=== PATIENT | female | born 1960 ===

== ENCOUNTER 2017-06-24 18:07 | Emergency (ER) | payer BC ==
[2017-06-24] MEDS ORDERED: Oxycodone/Acetaminophen 5/325 mg Tab PO STA (18:12)
[2017-06-24] MEDS ORDERED: Oxycodone/Acetaminophen 5/325 mg Tab ONE (18:15)
--- NOTE | 2017-06-24 18:24 | C.PDOC ---
History Of Present Illness 57 year old female was brought to the ED by EMS with complaints of left elbow pain after slipping and falling in the tub just prior to arrival. No other injury. No change in sensation. RIght hand dominant. She notes a previous surgery to the right elbow and denies head trauma, LOC, or vomiting. Time Seen by Provider: 06/24/17 18:09 Chief Complaint (Nursing): Upper Extremity Problem/Injury History Per: Patient, Cashier General History/Exam Limitations: no limitations Onset/Duration Of Symptoms: Mins (just prior to arrival ) Current Symptoms Are (Timing): Still Present Quality: "Pain" Exacerbating Factor(s): Movement Recent travel outside of the [place]: No Additional History Per: EMS Past Medical History Reviewed: Historical Data, Nursing Documentation, Vital Signs Vital Signs: Last Vital Signs Temp 98.4 F 06/24/17 21:02 Pulse 72 06/24/17 21:02 Resp 18 06/24/17 21:02 BP 110/61 06/24/17 21:02 Pulse Ox 100 06/24/17 21:02 Family History: States: Unknown Family Hx - Social History Hx Alcohol Use: No Hx Substance Use: No - Immunization History Hx Tetanus Toxoid Vaccination: Yes Hx Influenza Vaccination: Yes Hx Pneumococcal Vaccination: No Review Of Systems Except As Marked, All Systems Reviewed And Found Negative. Musculoskeletal: Positive for: Arm Pain (left elbow pain ) Physical Exam - Physical Exam Appears: Non-toxic, In Acute Distress (painful distress) Skin: Warm, Dry Head: Atraumatic, Normacephalic Eye(s): bilateral: Normal Inspection, PERRL, EOMI Nose: Normal Oral Mucosa: Moist Neck: Normal ROM, Supple Chest: Symmetrical, No Deformity Cardiovascular: Rhythm Regular Respiratory: Normal Breath Sounds, No Rhonchi, No Wheezing Extremity: No Normal ROM (decreased ROM ), Tenderness (to the left elbow ), Capillary Refill (good capillary refill, less than two seconds ), Deformity ( deformity of the left elbow ), No Swelling, Other (Patient is able to move digits of the left hand ) Pulses: Left Radial: Normal, Right Radial: Normal Neurological/Psych: Oriented x3, Normal Speech, Normal Cognition, Normal Motor, Normal Sensation Gait: Steady ED Course And Treatment O2 Sat by Pulse Oximetry: 99 (room air ) - Other Rad Left Elbow X-Ray X-Ray: Interpreted by Me, Viewed By Me Interpretation: (+) posterior Left elbow dislocation. Post reduction X-Ray: Interpreted by Me, Viewed By Me Interpretation: (+) elbow reduced. Questionable floating body vs fracture. Progress Note: X-ray of the left elbow was ordered. Patient was given oxycodone. Case discussed with Dr Martin, ortho information systems specialist who instructs reduction. Posterior elbow reduction preformed by Dr Herrera. Posterior elbow splint applied by me after redution and sling applied. Pt instructed to follow up with ortho in 1-2 days or return to ER if symptoms persist or worsen. Reassessment Condition: Improved Orthopedic Time Performed: 20:00 Procedure: Joint reduction Type: Posterior Location: Left Performed by: Mid-level Provider Diagnosis: Dislocation Type: Closed Location: Left Bone: Ulna Joints: Other (elbow joint) Anesthetic Technique: Oral pain medication, Procedural sedation Procedural Sedation: Propofol Capillary refill: Normal Distal Sensation: Normal Distal Motor Function: Normal Capillary Refill: Normal Compartment: Normal Distal Sensation: Normal Distal Motor Function: Normal Post-reduction Radiograph: Good Alignment Patient tolerated procedure: Well Disposition - Disposition Referrals: Clinic,Med Surg [Primary Care Provider] - Curt Martin III, MD [Staff Provider] - Disposition: HOME/ ROUTINE Disposition Time: 21:00 Condition: STABLE Additional Instructions: Loc miguel mdico ortopdico clnica en 1-3 canela sin falta, para mas evaluacin. [place] [facility] medicament[facility] amber indicado. Prescriptions: Naproxen [Naprosyn] 1 tab PO BID PRN #20 tab PRN Reason: Pain Instructions: Elbow Dislocation (ED) Forms: [employer] (Tanzanian) - Clinical Impression Clinical Impression: Elbow dislocation - Scribe Statement The provider has reviewed the documentation as recorded by the Scribe Rita Jacques All medical record entries made by the Scribe were at my direction and personally dictated by me. I have reviewed the chart and agree that the record accurately reflects my personal performance of the history, physical exam, medical decision making, and the department course for this patient. I have also personally directed, reviewed, and agree with the discharge instructions and disposition.
[2017-06-24] MEDS ORDERED: Sodium Chloride 0.9% 1,000 ML ONE (18:47)
[2017-06-24] MEDS ORDERED: Sodium Chloride 0.9% 1,000 ML IV ONE (18:47)
[2017-06-24] MEDS ORDERED: Propofol 10 mg/ml Inj (20 ML) IV ONE (19:25)
[2017-06-24] MEDS ORDERED: Propofol 10 mg/ml Inj (20 ML) ONE (19:34)
[2017-06-24] MEDS ORDERED: Propofol 10 mg/ml 1,000 MG/100 ML VIAL ONE (19:35)
[2017-06-24 21:03] VITALS: BP 110/61; PULSE 72; RESP 18; TEMP 98.4
[2017-06-24 22:13] VITALS: O2SAT 99
--- NOTE | 2017-06-25 10:54 | RAD ---
PROCEDURE: Radiographs of the left elbow. HISTORY: pain COMPARISON: No prior. FINDINGS: BONES: No suspicious lytic or blastic changes identified and there is no fracture appreciated throughout the left elbow. JOINTS: However, there is a posterior dislocation of both the radius and the ulna with the distal humeral condyle abutting the coronoid process of the proximal left ulna SOFT TISSUES: Normal. JOINT EFFUSION: None. OTHER FINDINGS: None IMPRESSION: Posterior ulnar and radial dislocations are identified at the left elbow without definite fracture identified. Please see discussion above.
--- NOTE | 2017-06-25 10:57 | RAD ---
PROCEDURE: Radiographs of the left elbow. HISTORY: post reduction COMPARISON: Left elbow pre reduction radiograph 06/24/2017 18:21 p.m. FINDINGS: BONES: Adequate reduction appears to have been achieved with a mild anterior joint effusion appreciate. No definite posterior joint effusion is identified at this time. Well corticated subcentimeter bony focus is appreciated anterior to the coronoid process of the proximal left ulna potentially reflecting accessory ossicle or likely chronic delete avulsion or chip fracture. No additional direct sign or fracture I would identified at this time. JOINTS: Adequate reduction is been achieved. SOFT TISSUES: Normal. JOINT EFFUSION: None. OTHER FINDINGS: None IMPRESSION: And reduction is been achieved status post posterior radioulnar dislocation left elbow. A chronic avulsion or chip fracture versus accessory ossicle is seen anterior to the left elbow, favored over acute fracture. CT can be utilized for follow-up if clinically warranted.
== END 2017-06-24 21:03 | disposition home or self-care (01) ==
LOC: C.ER 18:07 → SUPCPDRO 18:07 → C.ER 21:03
DX: S53.125A Posterior dislocation of left ulnohumeral joint, initial encounter (principal); W18.2XXA Fall in (into) shower or empty bathtub, initial encounter
CPT/HCPCS: 24600; 73080; 96360; 99285; J7040